=== PATIENT | female | born 1985 | race African-American/Black ===

== ENCOUNTER 2016-06-14 22:56 | Emergency (ER) | payer OTHER ==
[~2016-06-14] VITALS: Ht 167.6 cm; Wt 113.4 kg
[2016-06-14 23:02] VITALS: BP 155/69
== END 2016-06-15 07:19 | disposition left against medical advice (07) ==
LOC: ER 22:59
DX: R11.2 Nausea with vomiting, unspecified (principal); Z53.21 Procedure and treatment not carried out due to patient leaving prior to being seen by health care provider

== ENCOUNTER 2025-01-25 10:40 | Observation (INO) | payer SELFPAY ==
[2025-01-25] MEDS ORDERED: ASPI-543 PO (11:13)
[2025-01-25] MEDS ORDERED: FLUO1TAB12 PO (11:13)
[2025-01-25] MEDS ORDERED: PREN-96 PO (11:13)
[2025-01-25 12:09] LABS: Hematocrit 30.6 % (36.0-46.0); Hemoglobin 9.3 g/dL (12.2-16.2); Mean Corpuscular Hemoglobin 21.5 pg (28.0-32.0); Mean Corpuscular Volume 71.1 fL (80.0-100.0); Nucleated Red Blood Cells % 0.1 %
[2025-01-25 12:25] LABS: INR 0.97 (0.9-1.15); Partial Thromboplastin Time 22.8 SEC (24.5-34.5); Prothrombin Time 10.3 sec (9.3-11.8)
[2025-01-25 12:31] LABS: Alanine Aminotransferase 25 U/L (7-40); Albumin 4.1 g/dL (3.2-4.8); Anion Gap 9 (5-15); BUN/Creatinine Ratio 10.5 (10.0-20.0); Calcium 9.3 mg/dL (8.7-10.4); Carbon Dioxide 22 mmol/L (20-31); Chloride 107 mmol/L (98-107); Glucose 74 mg/dL (74-106); Potassium 3.7 mmol/L (3.5-5.1); Sodium 138 mmol/L (136-145); Total Protein 7.8 g/dL (5.7-8.2); Uric Acid 3.4 mg/dL (3.1-7.8)
[2025-01-25 12:32] LABS: Bilirubin, Total 0.4 mg/dL (0.2-1.0)
[2025-01-25 12:39] LABS: Alkaline Phosphatase 117 U/L (46-116); Blood Urea Nitrogen 6 mg/dL (9-23)
[2025-01-25 12:41] LABS: Protein, Urine < 6.0 mg/dL (1-14); Urine Protein, UAD Negative (Negative)
--- NOTE | 2025-01-25 12:42 | DVH ---
CLINICAL HISTORY: R. Flank/ lower abdominal pain TECHNIQUE: Complete ultrasound exam of the abdomen was performed. COMPARISON: None FINDINGS: The liver is mildly heterogeneous in echogenicity with no focal parenchymal abnormality. The liver m easures 19.5 cm in length. The common duct is 5 mm. Gallbladder is normal without shadowing stone or tenderness. The pancreas is within normal limits. No ascites or fluid collection. The right kidney is 12.5 cm and the left kidney is 4.0 cm. No increased echogenicity, shadowing ston e, or focal lesion. There is mild left renal pelvicaliectasis. Spleen is within normal limits. The aorta and IVC are normal caliber and patent. IMPRESSION: Mild left renal pelvicaliectasis. Hepatomegaly with heterogeneous liver echotexture,. While nonspecific, heterogeneous liver echotextu re kidneys using a the disease. Please correlate with laboratory values
--- NOTE | 2025-01-25 12:50 | DVH ---
BIOPHYSICAL PROFILE HISTORY: abdominal pain TECHNIQUE: Multiple transabdominal real-time grayscale sonographic images through the gravid uterus of the fetus with duplex Doppler color flow and M-mode spectral analysis FINDINGS: BIOPHYSICAL PROFILE: breathing score: 2 movement score: 2 tone score: 2 Quantitative HAIDER score: 2 (HAIDER: 13.3 Cm.) Total score: 8/8 The cervix obscured by head Single live fetus in cephalic presentation. heart rate 150 beats per minute. Large located fundus anteriorly. Possible accessory placenta in the fundus Grade 2 placenta without p revia or abruption Single live fetus at 32 weeks 5 days Biophysical profile score 8/8 corresponding to an CLEOPATRA of 03/17/2025 IMPRESSION: 1. Biophysical profile score: 8/8 2. FHR: 150 bpm 3. Large placenta possible accessory placenta in the fundus.
--- NOTE | 2025-01-25 13:19 | DVH ---
LIMITED OB ULTRASOUND > 14 WKS: HISTORY: abdominal pain TECHNIQUE: Multiple real-time grayscale images of the gravid uterus with duplex Doppler color flow an d M-mode spectral analysis. TRANSDUCER: Transabdominal FINDINGS: IUP single live fetus at 31 weeks 5 days based on composite averages of the BPD, head circumference, abdominal circumference and femur length Estimated weight 1887 grams +/-283 0.05 g; (4 lb 3 oz +/-10 oz) heart rate 159 beats per minute HAIDER 13.3 cm Cervix 3.39 cm long and appears closed Cephalic Presentation Large placenta possible accessory lobe fundus Grade 1 Placenta without previa or abruption. ANATOMY: VENTRICLES: Not seen POSTERIOR FOSSA: Not seen SPINE: Not seen 4-CHAMBER HEART: Normal RIGHT KIDNEY/LEFT KIDNEY: Normal STOMACH: Normal BLADDER: Normal 3-VESSEL CORD: Normal CORD INSERTION: Normal BPD: 7.6 CM= 30w5 d HC: 29.0= 32 weeks 0 days AC: 20.2 CM= 32 weeks 2 days FL: 6.1 cm= 32 weeks 0 days HC/AC: 1.0 (normal range: 0.9- 1.15) FL/AC: 21.9 (NORMAL RANGE 20-24) CI: 73.5 (NORMAL RANGE 70-86) IMPRESSION: 1. IUP single live fetus at 31 WEEKS 5 DAYS AUA corresponding to an CLEOPATRA of 03/24/2025 2. FHR: 159 BPM 3. Large placenta anteriorly with what appears to be accessory placenta in the fundus. No abruption o r previa. 4. Cervix measures 3.4 cm appears closed
[2025-01-25 13:24] LABS: Urine WBC Clumps None seen /hpf (None Seen)
--- NOTE | 2025-01-25 18:31 | DVHDS2 ---
Physician Discharge Progress N Final Diagnosis: low back pain Secondary Diagnosis: anemia Operations or Procedures: Operations or Procedures S: 39yo IUP@32.5wks presents to OB triage with c/o low back 10/10 pain since Friday and Right flank sharp pain radiating to the front RUQ abdomen. Pt has history of migraines. Allergic to Tylenol. Denies Ucs/LOF/VB/LAROSE/vision changes/RUQ pain. Endorses +FM. PNC with Dr. Ryan, wants to switch to Dr. Paul. [employer] hx: c/s x1, ABx1, myomectomy in 2023. O: VSS NST reactive per RN Instant heat pack offered for low back pain Laboratory Tests Test 01/25/25 11:40 01/25/25 11:45 Range/Units Urine Color Light-yellow Yellow Urine Clarity Clear Clear Urine pH 6.5 5.0-9.0 Urine Specific [place] 1.014 1.001-1.035 Urine Protein Negative Negative Urine Ketones Negative Negative Urine Blood Negative Negative /uL Urine Nitrite Negative Negative Urine Bilirubin Negative Negative Urine Urobilinogen Normal Negative mg/dL Urine Leukocyte Esterase Negative Negative /uL Urine RBC 1 0 - 4 /hpf Urine WBC Clumps None seen None Seen /hpf Urine Microscopic WBC 1 0-5 /HPF Urine Squamous Epithelial Cells Few <5 /hpf Urine Bacteria None seen None Seen /hpf Urine Creatinine 90.61 30.0-125.0 mg/dL Urine Protein/Creatinine Ratio 0.07 Urine Glucose Normal Normal mg/dL Urine Total Protein < 6.0 1-14 mg/dL White Blood Count 10.5 4.4-10.8 10^3/uL Red Blood Count 4.31 4.0-5.20 10^6/uL Hemoglobin 9.3 L 12.2-16.2 g/dL Hematocrit 30.6 L 36.0-46.0 % Mean Corpuscular Volume 71.1 L 80.0-100.0 fL Mean Corpuscular Hemoglobin 21.5 L 28.0-32.0 pg Mean Corpuscular Hemoglobin Concent 30.2 L 32.0-36.0 g/dL Red Cell Distribution Width 20.1 H 11.8-14.3 % Platelet Count 435 140-450 10^3/uL Mean Platelet Volume 8.5 6.9-10.8 fL Neutrophils (%) (Auto) 75.3 37.0-80.0 % Lymphocytes (%) (Auto) 14.4 10.0-50.0 % Monocytes (%) (Auto) 9.2 0.0-12.0 % Eosinophils (%) (Auto) 0.8 0.0-7.0 % Basophils (%) (Auto) 0.3 0.0-2.0 % Neutrophils # (Auto) 7.9 1.6-8.6 10 ^3/uL Lymphocytes # (Auto) 1.5 0.4-5.4 10 ^3/uL Monocytes # (Auto) 1.0 0-1.3 10 ^3/uL Eosinophils # (Auto) 0.1 0-0.8 10 ^3/uL Basophils # (Auto) 0 0-0.2 10 ^3/uL Nucleated Red Blood Cells 0.1 % Prothrombin Time 10.3 9.3-11.8 sec Prothrombin Time INR 0.97 0.9-1.15 Activated Partial Thromboplast Time 22.8 L 24.5-34.5 SEC Sodium Level 138 136-145 mmol/L Potassium Level 3.7 3.5-5.1 mmol/L Chloride Level 107 98-107 mmol/L Carbon Dioxide Level 22 20-31 mmol/L Anion Gap 9 5-15 Blood Urea Nitrogen 6 L 9-23 mg/dL Creatinine 0.57 0.550-1.02 mg/dL Glomerular Filtration Rate Calc 119 >90 mL/min BUN/Creatinine Ratio 10.5 10.0-20.0 Serum Glucose 74 74-106 mg/dL Uric Acid 3.4 3.1-7.8 mg/dL Calcium Level 9.3 8.7-10.4 mg/dL Total Bilirubin 0.4 0.2-1.0 mg/dL Aspartate Amino Transferase (AST) 35 13-40 U/L Alanine Aminotransferase (ALT) 25 7-40 U/L Alkaline Phosphatase 117 H 46-116 U/L Total Protein 7.8 5.7-8.2 g/dL Albumin 4.1 3.2-4.8 g/dL A: 39yo IUP@32.5wks Low back pain Anemia Ruled out preeclampsia P: D/C home Dr. Paul consulted, unable to transfer care of this pt to [facility] due to hx of myomectomy. Pt needs higher level of care, instructed to continue PNC Dr. Ryan or transfer care at [facility]. Recommended critical care specialist, support belt, and OTC iron supplement FKC/PTL/PreE precautions reviewed Other Interventions Other Interventions [place] [address] Ph: [phone] DIAGNOSTIC IMAGING Diagnostic Imaging Report : [id number] Signed PATIENT: LULA DC ACCT: [id number] UNIT: [id number] : 1985 LOC: [facility] ROOM / BED: TRIAGE1 / A AGE / SEX: 39 / F ADM STATUS: ADM IN SERVICE 25 ORDERING PHYSICIAN: LOYDA VIDAL CNM PROCEDURE(s): BPP - BIOPHYSICAL PROFILE REASON: abdominal pain ORDER NUMBER(s): [id number], ACCESSION NUMBER(s): [id number] BIOPHYSICAL PROFILE HISTORY: abdominal pain TECHNIQUE: Multiple transabdominal real-time grayscale sonographic images through the gravid uterus of the fetus with duplex Doppler color flow and M-mode spectral analysis FINDINGS: BIOPHYSICAL PROFILE: breathing score: 2 movement score: 2 tone score: 2 Quantitative HAIDER score: 2 (HAIDER: 13.3 Cm.) Total score: 8/8 The cervix obscured by head Single live fetus in cephalic presentation. heart rate 150 beats per minute. Large located fundus anteriorly. Possible accessory placenta in the fundus Grade 2 placenta without previa or abruption Single live fetus at 32 weeks 5 days Biophysical profile score 8/8 corresponding to an CLEOPATRA of 03/17/2025 IMPRESSION: 1. Biophysical profile score: 8/8 2. FHR: 150 bpm 3. Large placenta possible accessory placenta in the fundus. ATED BY: NEELIMA ESCOBEDO Jr., DO DICTATED DATE/TIME: 01/25/251247 SIGNED BY: NEELIMA ESCOBEDO Jr., DO SIGNED DATE/TIME: 01/25/251247 CC: Consultations: Consultations [place] [id number] Ph: [phone] DIAGNOSTIC IMAGING Diagnostic Imaging Report : [id number] Signed PATIENT: LULA DC ACCT: [id number] UNIT: [id number] : 1985 LOC: [facility] ROOM / BED: TRIAGE1 / A AGE / SEX: 39 / F ADM STATUS: ADM IN SERVICE 1126 ORDERING PHYSICIAN: LOYDA VIDAL CNM PROCEDURE(s): OBUS - OB ULTRASOUND COMP GTR 14 WKS REASON: abdominal pain ORDER NUMBER(s): [id number], ACCESSION NUMBER(s): [id number] LIMITED OB ULTRASOUND > 14 WKS: HISTORY: abdominal pain TECHNIQUE: Multiple real-time grayscale images of the gravid uterus with duplex Doppler color flow and M-mode spectral analysis. TRANSDUCER: Transabdominal FINDINGS: IUP single live fetus at 31 weeks 5 days based on composite averages of the BPD, head circumference, abdominal circumference and femur length Estimated weight 1887 grams +/-283 0.05 g; (4 lb 3 oz +/-10 oz) heart rate 159 beats per minute HAIDER 13.3 cm Cervix 3.39 cm long and appears closed Cephalic Presentation Large placenta possible accessory lobe fundus Grade 1 Placenta without previa or abruption. ANATOMY: VENTRICLES: Not seen POSTERIOR FOSSA: Not seen SPINE: Not seen 4-CHAMBER HEART: Normal RIGHT KIDNEY/LEFT KIDNEY: Normal STOMACH: Normal BLADDER: Normal 3-VESSEL CORD: Normal CORD INSERTION: Normal BPD: 7.6 CM= 30w5 d HC: 29.0= 32 weeks 0 days AC: 20.2 CM= 32 weeks 2 days FL: 6.1 cm= 32 weeks 0 days HC/AC: 1.0 (normal range: 0.9- 1.15) FL/AC: 21.9 (NORMAL RANGE 20-24) CI: 73.5 (NORMAL RANGE 70-86) IMPRESSION: 1. IUP single live fetus at 31 WEEKS 5 DAYS AUA corresponding to an CLEOPATRA of 03/24/2025 2. FHR: 159 BPM 3. Large placenta anteriorly with what appears to be accessory placenta in the fundus. No abruption or previa. 4. Cervix measures 3.4 cm appears closed ATED BY: NEELIMA ESCOBEDO Jr., DO DICTATED DATE/TIME: 01/25/251316 SIGNED BY: NEELIMA ESCOBEDO Jr., SIGNED DATE/TIME: 01/25/251316 CC: Commentary: Commentary [address] [address] Ph: [phone] DIAGNOSTIC IMAGING Diagnostic Imaging Report : [id number] Signed PATIENT: LULA DC ACCT: [id number] UNIT: [id number] : 1985 LOC: [facility] ROOM / BED: TRIAGE1 / A AGE / SEX: 39 / F ADM STATUS: ADM IN SERVICE 25 ORDERING PHYSICIAN: LOYDA VIDAL CNM PROCEDURE(s): ABDC - ABDOMEN COMPLETE SONOGRAM REASON: R. Flank/ lower abdominal pain ORDER NUMBER(s): [id number], ACCESSION NUMBER(s): [id number] CLINICAL HISTORY: R. Flank/ lower abdominal pain TECHNIQUE: Complete ultrasound exam of the abdomen was performed. COMPARISON: None FINDINGS: The liver is mildly heterogeneous in echogenicity with no focal parenchymal abnormality. The liver measures 19.5 cm in length. The common duct is 5 mm. Gallbladder is normal without shadowing stone or tenderness. The pancreas is within normal limits. No ascites or fluid collection. The right kidney is 12.5 cm and the left kidney is 4.0 cm. No increased echogenicity, shadowing stone, or focal lesion. There is mild left renal pelvicaliectasis. Spleen is within normal limits. The aorta and IVC are normal caliber and patent. IMPRESSION: Mild left renal pelvicaliectasis. Hepatomegaly with heterogeneous liver echotexture,. While nonspecific, heterogeneous liver echotexture kidneys using a the disease. Please correlate with laboratory values ATED BY: YOANDY HULL MD DICTATED DATE/TIME: 01/25/251238 SIGNED BY: YOANDY HULL MD SIGNED DATE/TIME: 01/25/251238 CC: Condition on Discharge: Stable Disposition: Home Discharge Instructions: Diet: Regular Activity: No Restrictions, As Tolerated Medications: see med list Follow Up Care: Specialist: f/u with primary OB Discharge Statement: "Patient was advised to return to the ER or call 911 if any headaches, dizziness, shortness of breath, chest pain, abdominal pain, bleeding, fevers, or worsening of medical condition. Patient was counseled about treatment plan, medications, possible side effects, patientverbalized understanding. All questions were answered to the best of my ability. This discharge took greater then 30 minutes in planning, reviewing documentation, counseling the patient, and discussing with other team members." Visit Coding OBGYN Date of Service: Jan 25, 2025 Billing Provider: LOYDA VIDAL CNM [employer] Common Visit Codes: 06676-NVBCKVG OBS CARE (HIGH) [employer] Procedure Codes: 10054-65- NON-STRESS TEST LOYDA VIDAL CNM Jan 25, 2025 18:31
== END 2025-01-25 13:41 | disposition home or self-care (01) ==
LOC: LDRP 10:40 → EDBD 10:40
PROVIDERS: ADMIT Obstetrics & Gynecology; ATTEND Obstetrics & Gynecology
DX: O99.891 Other specified diseases and conditions complicating pregnancy (principal); M54.50 Low back pain, unspecified; O99.013 Anemia complicating pregnancy, third trimester; D64.9 Anemia, unspecified; Z3A.32 32 weeks gestation of pregnancy; Z98.890 Other specified postprocedural states; Z79.899 Other long term (current) drug therapy
CPT/HCPCS: 36415; 76700; 76805; 76818; 80053; 81001; 81002; 82570; 84156; 84550; 85025; 85610; 85730; 94760; G0378; 76819